=== PATIENT | male | born 1985 | race Caucasian/White ===

== ENCOUNTER 2016-08-25 23:54 | Emergency (ER) | payer OTHER ==
[~2016-08-25 23:54] MED LIST: ALBUTEROL17 GM INH; ALLEGRA-D1 TAB.SR1 PO; BACITRACIN OP3.5 GM TOP; BUSPAR5 M1; DICLOFENAC SODI50 MG PO; KETOPROFEN PO; LIORESAL10 MG; MOBIC; MORGIDOX100 MG PO; NO MEDICATIONS; PHENERGAN DM1 ML PO; PHENERGAN PO; PREDNISONE PO; ROBAXIN 750750 M1 PO; TIZANIDINE HCL2 M1; TRIAMCINOLONE AC1 GM TOP; VIBRAMYCIN100 M1 PO; VICODIN 5/1 TAB 5/50 PO; VOLTAREN75 MG; VOLTAREN75 MG PO; ZITHROMAX PO; ZOFRAN ODT4 MG PO; ZOLOFT
[2016-08-26 00:48] LABS: URINE SOURCE CLEAN CATCH
[2016-08-26 00:50] LABS: URINE APPEARANCE CLEAR; URINE BILIRUBIN NEG (NEG); URINE BLOOD NEG (NEG); URINE COLOR YELLOW; URINE GLUCOSE NEG (NORM); URINE KETONE NEG (NEG); URINE LEUKOCYTE ESTERASE NEG (NEG); URINE NITRATE NEG (NEG); URINE PH 5.5 (5-8); URINE PROTEIN NEG (NEG); URINE SPECIFIC GRAVITY >=1.030 (1.003-1.035); URINE UROBILINOGEN 0.2 MG/DL (NORM)
[2016-08-26 00:52] LABS: MICRO INDICATED? NO
== END 2016-08-26 01:32 | disposition home or self-care (01) ==
LOC: SED 23:54
PROVIDERS: Physician Assistant
DX: S30.0XXA Contusion of lower back and pelvis, initial encounter (principal); R03.0 Elevated blood-pressure reading, without diagnosis of hypertension; F17.210 Nicotine dependence, cigarettes, uncomplicated; W10.9XXA Fall (on) (from) unspecified stairs and steps, initial encounter; Y92.009 Unspecified place in unspecified non-institutional (private) residence as the place of occurrence of the external cause
CPT/HCPCS: 81003; 96372; 99283; J1885; J2360

== ENCOUNTER 2016-10-30 22:51 | Emergency (ER) | payer OTHER ==
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
== END 2016-10-30 23:05 | disposition home or self-care (01) ==
LOC: SED 22:51
DX: S09.90XA Unspecified injury of head, initial encounter (principal); S00.432A Contusion of left ear, initial encounter; F41.9 Anxiety disorder, unspecified; F32.9 Major depressive disorder, single episode, unspecified; Y04.0XXA Assault by unarmed brawl or fight, initial encounter
CPT/HCPCS: 70450; 99284

== ENCOUNTER 2017-01-20 22:29 | Emergency (ER) | payer OTHER ==
[~2017-01-20] VITALS: Ht 177.8 cm; Wt 97.5 kg
[2017-01-20] MEDS ORDERED: LIPITOR (22:49)
== END 2017-01-20 23:29 | disposition home or self-care (01) ==
LOC: SED 22:29
DX: S43.421A Sprain of right rotator cuff capsule, initial encounter (principal); F31.9 Bipolar disorder, unspecified; E78.5 Hyperlipidemia, unspecified; F17.200 Nicotine dependence, unspecified, uncomplicated; X58.XXXA Exposure to other specified factors, initial encounter
CPT/HCPCS: 99283